=== PATIENT | male | born 1955 | race Caucasian/White ===

== ENCOUNTER 2021-08-15 12:55 | Emergency (ER) | payer MEDICARE, SELFPAY ==
[2021-08-15] VITALS (13 sets, daily range): BP systolic 145–185; BP diastolic 82–91; PULSE 64–109; RESP 17–19; TEMP 36.6; O2SAT 92–95; BMI 40.1
[2021-08-15 13:20] LABS: Influenza A, PCR Not Detected (NotDetected); Influenza B, PCR Not Detected (NotDetected)
[2021-08-15 13:37] LABS: Basophils # 0.1 K/mm3 (0-0.2); Eosinophils % 0.3 % (0.1-12.0); Hematocrit 50.3 % (42.0-52.0); Hemoglobin 17.1 g/dL (14.1-18.0); Lymphocytes # 1.5 K/mm3 (0.7-4.5); Lymphocytes % 21.9 % (10-50); Mean Corpuscular HGB Conc 34.1 g/dL (31.8-35.4); Mean Corpuscular Hemoglobin 30.1 pg (27.0-31.2); Mean Corpuscular Volume 88.4 fl (80-94); Mean Platelet Volume 9.2 fl (7.4-10.4); Monocytes # 0.4 K/mm3 (0.1-1.0); Monocytes % 6.3 % (1.7-9.3); Neutrophils # 4.6 K/mm3 (1.8-7.8); Neutrophils % 69.5 % (37.0-80.0); Platelet Count 190 K/mm3 (142-424); Red Blood Count 5.69 M/mm3 (4.60-6.20); Red Cell Distribution Width 13.5 % (11.5-17.5); White Blood Count 6.6 K/mm3 (4.8-10.8)
[2021-08-15 13:40] LABS: Chloride 94 mmol/L (98-107); Potassium 4.1 mmoL/L (3.5-5.1); Sodium 130 mmol/L (136-145)
[2021-08-15 13:42] LABS: Blood Urea Nitrogen 18 mg/dl (9-20); Creatinine Clearance Estimated 131 mL/min (50-200); Estimated Glomerular Filt Rate 113 ml/min (>60); GFR (African American) 137 ML/MIN (>60)
[2021-08-15 13:43] LABS: Alanine Aminotransferase 38 U/L (12-78); Albumin Level 3.8 g/dl (3.5-5.0); Albumin/Globulin Ratio 1.2 (1.1-1.8); Alkaline Phosphatase 116 U/L (38-126); Anion Gap 19.1 mEq/L (5-15); Aspartate Amino Transferase 43 U/L (17-59); Bilirubin,Total 1.1 mg/dl (0.2-1.3); Calcium 8.9 mg/dl (8.4-10.2); Carbon Dioxide 21 mmol/L (22.0-30.0); Globulin 3.1 g/dL (1.3-3.2); Glucose 300 mg/dl (74-100); Total Protein,Serum 6.9 g/dl (6.3-8.2)
[2021-08-15 13:44] LABS: Coronavirus 19, PCR Detected (NotDetected)
--- NOTE | 2021-08-15 14:53 | HMH.EDWEAK ---
ED Disposition Clinical Impression: Dehydration, Hyperglycemia due to diabetes mellitus, Bronchitis due to COVID-19 virus Disposition: Home, Self-Care Condition on Discharge: Good Instructions: DI for COVID-19 (Suspected or Confirmed ) Prescriptions: Albuterol Sulfate [Albuterol Sulfate Hfa] 2 puff IH Q4HP PRN #1 each PRN Reason: Wheezing Transmission [facility] Referrals: Jules Silva MD [Primary Care Provider] - - Critical Care Critical Care Time: No Attestation: On 08/15/21, the high probability of a clinically significant, sudden or life threatening deterioration of the following system(s) required my full and direct attention, intervention and personal management. The time I documented below is in addition to time spent performing reported procedures but includes the following listed in this critical care notation. Medical Decision Making - Medical Records Medical records reviewed: Yes: I reviewed the patient's medical records. - Zac Inquiry Pt receiving controlled substance: No Vital Signs: 08/15/21 12:56 08/15/21 13:31 08/15/21 14:01 Temperature 97.9 F Temperature Source Oral Pulse Rate 99 H 94 H Pulse Rate [Left Radial] 109 H Respiratory Rate 18 Blood Pressure 145/84 H 157/83 H Blood Pressure [Right Arm] 168/90 H Blood Pressure Mean 107 106 Blood Pressure Mean [Right Arm] 116 02 Sat by Pulse Oximetry 94 L 92 L 95 Oxygen Delivery Method Room Air Room Air 08/15/21 14:31 08/15/21 15:01 08/15/21 15:42 Temperature Temperature Source Pulse Rate 89 90 64 Pulse Rate [Left Radial] Respiratory Rate 18 18 Blood Pressure 185/91 H 168/88 H 156/86 H Blood Pressure [Right Arm] Blood Pressure Mean 112 114 115 Blood Pressure Mean [Right Arm] 02 Sat by Pulse Oximetry 92 L 92 L 95 Oxygen Delivery Method 08/15/21 16:00 08/15/21 16:30 08/15/21 17:01 Temperature Temperature Source Pulse Rate 88 92 H 90 Pulse Rate [Left Radial] Respiratory Rate 19 17 Blood Pressure 160/89 H 170/89 H 158/83 H Blood Pressure [Right Arm] Blood Pressure Mean 112 104 101 Blood Pressure Mean [Right Arm] 02 Sat by Pulse Oximetry 92 L 94 L 95 Oxygen Delivery Method - Lab Data Lab Results 08/15/21 13:05: SARS-CoV-2 (PCR) Detected A, Influenza A Untype (PCR) Not detected, Influenza Type B (PCR) Not detected 08/15/21 13:26: WBC 6.6, RBC 5.69, Hgb 17.1, Hct 50.3, MCV 88.4, MCH 30.1, MCHC 34.1, RDW 13.5, Plt Count 190, MPV 9.2, Neut % (Auto) 69.5, Lymph % (Auto) 21.9, [place] % (Auto) 6.3, Eos % (Auto) 0.3, Baso % (Auto) 2.0, Neut # (Auto) 4.6, Lymph # (Auto) 1.5, [place] # (Auto) 0.4, Eos # (Auto) 0.0, Baso # (Auto) 0.1 08/15/21 13:26: Sodium 130 L, Potassium 4.1, Chloride 94 L, Carbon Dioxide 21 L, Anion Gap 19.1 H, BUN 18, Creatinine 0.70, Estimated Creat Clear 131, Estimated GFR 113, Est GFR ( Amer) 137, Glucose 300 H, Calcium 8.9, Total Bilirubin 1.1, AST 43, ALT 38, Alkaline Phosphatase 116, Total Protein 6.9, Albumin 3.8, Globulin 3.1, Albumin/Globulin Ratio 1.2 08/15/21 13:26: Acetone Level Small 08/15/21 14:18: Specimen Source Right radial, O2 % Ra, ABG pH 7.43, ABG pCO2 30.4 L, ABG pO2 68.5 L, ABG HCO3 19.6 L, ABG Total CO2 20.6 L, ABG O2 Saturation 94, ABG Base Excess -4.7 L, Zeke Test Acceptable 08/15/21 16:45: Urine Color Shanna, Urine Appearance Clear, Urine pH 6.0, Ur Specific [place] >= 1.030, Urine Protein 2+, Urine Glucose (UA) 3+, Urine Ketones 2+, Urine Blood Trace-i, Urine Nitrate Negative, Urine Bilirubin 2+ A, Urine Urobilinogen 2.0, Ur Leukocyte Esterase Negative, Urine RBC 3-5, Urine WBC None, Ur Squamous Epith Cells Occasional, Urine Bacteria Trace Result diagrams: 08/15/21 13:26 08/15/21 13:26 Orders (Tests/Meds): ED MEDICATIONS Discontinued Medications Generic Name Dose Route Start Last Admin Trade Name Freq PRN Reason Stop Dose Admin Dexamethasone Sodium Phosphate 10 mg 08/15/21 16:25 08/15/21 1
--- NOTE | 2021-08-15 15:05 | PC.WOUNDNOTE ---
pt given urinal to collect urine sample
--- NOTE | 2021-08-15 15:06 | XR_ITS ---
PROCEDURE: XR CHEST PORTABLE CLINICAL HISTORY: cough COMPARISON: No exams were available for comparison FINDINGS: The cardiomediastinal silhouette and pulmonary vascularity are within normal limits. A 4 cm rounded mass is present in the right lower lobe. Consider chest CT for further evaluation. This could represent a neoplasm or rounded area of pneumonia. The remaining lungs are clear. No acute bony abnormalities. IMPRESSION: 4 cm right lower lobe mass. Further evaluation with CT suggested. Dictated by: Zeke Bethea MD 08/15/2021 15:39 Zeke Bethea MD in [place] 08/15/2021 15:39
[2021-08-15 15:22] LABS: ABG Base Excess -4.7 mmol/L (-2.4-2.3); ABG HCO3 19.6 mmhg (22.0-26.0); ABG Oxygen Saturation 94 % (90-100); ABG PCO2 30.4 mmhg (35.0-45.0); ABG PH 7.43 mmol/L (7.35-7.45); ABG PO2 68.5 mmhg (80-100); ABG TCO2 20.6 mmhg (23-27)
[2021-08-15 15:24] LABS: Allen's Test Acceptable; Oxygen RA %; Source Right Radial
[2021-08-15 15:26] LABS: Acetone, Serum (Rapid) Small (None Detect)
--- NOTE | 2021-08-15 15:54 | PC.NURSE ---
Unable to urinate at this time. second liter of fluids started
[2021-08-15 17:03] LABS: Microscopic, Urine URINE MICROSCOPIC (MICROSCOPIC)
[2021-08-15 17:07] LABS: Appearance,Urine CLEAR (Clear); Blood, Urine TRACE-I (Negative); Color,Urine AMBER (Yellow); Glucose,Urine (UA) 3+ (Negative); Ketones,Urine 2+ (Negative); Leukocyte Esterase,Urine Negative (Negative); Nitrate,Urine Negative (Negative); Protein,Urine 2+ (Negative); Specific Gravity, Urine >= 1.030 (1.005-1.030)
[2021-08-15 17:13] LABS: Bilirubin,Urine 2+ (Negative)
[2021-08-15 17:21] LABS: Bacteria,Urine Trace /lpf; Squamous Epithelial Cell,Urine Occasional #/hpf (0-5)
== END 2021-08-15 19:24 | disposition home or self-care (01) ==
PROVIDERS: Emergency Provider Emergency Medicine; PCP Family Medicine
DX: U07.1 COVID-19 (principal); J20.9 Acute bronchitis, unspecified; E86.0 Dehydration; E11.65 Type 2 diabetes mellitus with hyperglycemia; I10 Essential (primary) hypertension; E78.5 Hyperlipidemia, unspecified; Z79.899 Other long term (current) drug therapy
CPT/HCPCS: 71045; 80053; 81001; 82009; 82803; 85025; 96365; 96366; 96375; 99283; C9803; U0003; U0005